=== PATIENT | female | born 1980 | race Two or more races ===

== ENCOUNTER 2024-04-27 11:43 | Emergency (ER) | payer OTHER ==
[~2024-04-27] VITALS: Ht 157.5 cm; Wt 74.8 kg
[2024-04-27] MEDS ORDERED: CARAFATE1 GM PO (11:53)
[2024-04-27] MEDS ORDERED: OMEPRAZOLE20 MG PO (11:53)
[2024-04-27] MEDS ORDERED: COLESTID1 GM PO (11:53)
[2024-04-27] MEDS ORDERED: SYNTHROID112 MCG PO (11:53)
[2024-04-27] MEDS ORDERED: ONDANSETRON HCL 2 MG/ML VIAL IV ONE (14:15)
[2024-04-27] MEDS ORDERED: ONDANSETRON HCL 2 MG/ML VIAL ONE (14:19)
[2024-04-27 14:33] LABS: HEMATOCRIT 37.3 % (36.0-45.00); HEMOGLOBIN 12.1 g/dL (12.0-15.00); MEAN CELL VOLUME 85.7 fL (80.00-100.00); MEAN CORPUSCULAR HEMOGLOBIN 27.7 pg (27.00-32.0); MEAN CORPUSCULAR HGB CONC 32.4 g/dl (32.0-36.0); PLATELET COUNT 273 K/uL (150-450); RED BLOOD COUNT 4.36 M/uL (4.00-6.00); RED CELL DISTRIBUTION WIDTH 14.3 % (11.5-14.5)
[2024-04-27 14:51] LABS: BILIRUBIN TOTAL 0.38 mg/dL (0.3-1.2); CALCIUM 9.2 mg/dL (8.5-10.1); CREATININE SERUM 0.76 mg/dL (0.55-1.02); GFR 82.3; GLOBULINA 3.5 G/DL (2.4-3.5); POTASSIUM 4.24 mEq/L (3.5-5.1); TOTAL PROTEIN 7.5 gm/dL (6.4-8.2)
[2024-04-27 15:34] LABS: PH,URINE 7.5 (5.0-8.0); URINE APPEARANCE Clear; URINE BILIRRUBIN Negative (NEGATIVE); URINE BLOOD Negative; URINE COLOR Yellow; URINE GLUCOSE Negative (NEGATIVE); URINE KETONE Negative (NEGATIVE); URINE LEUKOCYTE Negative; URINE NITRATE Negative; URINE PROTEIN Negative (NEGATIVE); URINE UROBILINOGEN 0.2 E.U./dl
[2024-04-27 15:39] LABS: URINE BACTERIA 177.4 uL (0.0-1933); URINE EPITHELIAL CELLS 2.2 uL (0.0-38.8); URINE WBC 5.5 uL (0.0-23.2)
[2024-04-27] MEDS ORDERED: KETOROLAC TROMETHAMINE 30 MG VIAL IM STA ×2 (17:22→19:54)
[2024-04-27] MEDS ORDERED: KETOROLAC TROMETHAMINE 30 MG VIAL ONE (17:54)
== END 2024-04-27 20:20 | disposition home or self-care (01) ==
LOC: ER 11:45
PROVIDERS: General Practice
DX: R10.31 Right lower quadrant pain (principal); K58.8 Other irritable bowel syndrome; M32.8 Other forms of systemic lupus erythematosus; E03.8 Other specified hypothyroidism; Z91.011 Allergy to milk products

== ENCOUNTER 2024-04-28 14:29 | Emergency (ER) | payer OTHER ==
[~2024-04-28] VITALS: Ht 157.5 cm; Wt 74.8 kg
[~2024-04-28 14:29] MED LIST: CARAFATE1 GM PO; COLESTID1 GM PO; OMEPRAZOLE20 MG PO; SYNTHROID112 MCG PO
[2024-04-28] MEDS ORDERED: MEPERIDINE HCL/PF 50 MG/ML VIAL IM ONE (15:00)
[2024-04-28] MEDS ORDERED: ONDANSETRON HCL 2 MG/ML VIAL IV ONE (15:00)
[2024-04-28] MEDS ORDERED: ONDANSETRON HCL 2 MG/ML VIAL ONE (15:10)
[2024-04-28 15:41] LABS: HEMATOCRIT 37.5 % (36.0-45.00); HEMOGLOBIN 12.1 g/dL (12.0-15.00); MEAN CELL VOLUME 85.4 fL (80.00-100.00); MEAN CORPUSCULAR HEMOGLOBIN 27.6 pg (27.00-32.0); MEAN CORPUSCULAR HGB CONC 32.3 g/dl (32.0-36.0); PLATELET COUNT 254 K/uL (150-450)
[2024-04-28 15:49] LABS: URINE APPEARANCE Clear; URINE BILIRRUBIN Negative (NEGATIVE); URINE BLOOD Negative; URINE COLOR Yellow; URINE GLUCOSE Negative (NEGATIVE); URINE KETONE Negative (NEGATIVE); URINE LEUKOCYTE Negative; URINE NITRATE Negative; URINE PROTEIN Negative (NEGATIVE); URINE UROBILINOGEN 0.2 E.U./dl
[2024-04-28 15:52] LABS: INR 0.94; PARTIAL THROMBOPLASTIN TIME 26.3 SECONDS (22.0-34.0); PROTHROMBIN TIME 10.3 SECONDS (9.0-11.5)
[2024-04-28 15:53] LABS: URINE BACTERIA 37.9 uL (0.0-1933); URINE EPITHELIAL CELLS 1.5 uL (0.0-38.8)
[2024-04-28 15:57] LABS: ALBUMIN 3.9 gm/dL (3.4-5.0); BILIRUBIN TOTAL 0.48 mg/dL (0.3-1.2); CREATININE SERUM 0.87 mg/dL (0.55-1.02); GFR 70.41; POTASSIUM 4.47 mEq/L (3.5-5.1); TOTAL PROTEIN 6.9 gm/dL (6.4-8.2)
[2024-04-28] MEDS ORDERED: HYOSCYAMINE SULFATE 0.125 MG TAB.SUBL SL STA (16:20)
[2024-04-28] MEDS ORDERED: HYOSCYAMINE SULFATE 0.125 MG TAB.SUBL ONE (16:25)
[2024-04-28] MEDS ORDERED: KETOROLAC TROMETHAMINE 30 MG VIAL IV STA (17:25)
[2024-04-28] MEDS ORDERED: DEXAMETHASONE SODIUM PHOSPHATE 4 MG/ML VIAL IV STA (17:26)
[2024-04-28] MEDS ORDERED: ACETAMINOPHEN 500 MG GEL..CAP PO STA (17:27)
[2024-04-28] MEDS ORDERED: KETOROLAC TROMETHAMINE 30 MG VIAL ONE (17:42)
[2024-04-28] MEDS ORDERED: DEXAMETHASONE SODIUM PHOSPHATE 4 MG/ML VIAL ONE (17:42)
[2024-04-28] MEDS ORDERED: ACETAMINOPHEN 500 MG GEL..CAP PO ONE (17:42)
== END 2024-04-28 19:43 | disposition home or self-care (01) ==
LOC: ER 14:31
PROVIDERS: General Practice
DX: R10.2 Pelvic and perineal pain (principal); E03.9 Hypothyroidism, unspecified; Z91.011 Allergy to milk products